=== PATIENT | female | born 1985 | race Caucasian/White ===

== ENCOUNTER → 2016-11-28 | Outpatient (CLI) | payer BC | LOC: COL.RAD 11-27 09:45 | DX: O26.849 Uterine size-date discrepancy, unspecified trimester (principal); Z3A.37 37 weeks gestation of pregnancy ==

== ENCOUNTER → 2016-12-13 | Outpatient (CLI) | payer BC | LOC: COL.RAD 07:31 → LDRO 07:31 | DX: O26.849 Uterine size-date discrepancy, unspecified trimester (principal) ==